=== PATIENT | female | born 1965 | race African-American/Black ===

== ENCOUNTER → 2017-04-13 | Outpatient (CLI) | payer BC ==
[~2017-04-13] MED LIST: DAYPRO600 M1 PO; LEVOCETIRIZINE D5 MG PO; METOPROLOL TAR25 MG PO; NEURONTIN100 MG PO; VOLTAREN75 MG PO
--- NOTE | ~2017-04-13 | MY29 ---
[facility] A Service of [facility] RADIOLOGY TEXT RESULTS PATIENT: CLIVE DALY LOCATION: [facility] : 63 UNIT #: [id number] AGE: [address]: Pedro Jaramillo MD SEX: F ORDER DR: [id number] [facility] [address] [place], [place] [address] [id number] O MR#: [id number] Acc #: [id number] NAME: CLIVE DALY. : 1965 SEX: F STUDY DATE/TIME: 04/13/2017 8:53 UNIT: [facility] ROOM: STUDY DESCRIPTION: MY MIRIAM SCREENING W/ CAD BILAT Attending Physician: Pedro Jaramillo M.D. Ordering Physician: Pedro Jaramillo M.D. Primary Care Physician: Guanako Munguia Jr., M.D. MEDICAL IMAGING REPORT This report is preliminary unless electronic signature is present EXAM Digital screening mammogram 04/13/2017. [facility] HISTORY 51-year-old woman no risk elevation. Annual screening. COMPARISON: Mammograms date to 03/18/2007 with most recent 04/09/2016. FINDINGS Digital imaging of each breast was completed utilizing screening protocol. Review includes FDA-approved CAD device. The breast parenchyma is heterogeneously dense. There are 3 circumscribed nodules again identified in the left breast with the larger nodule in the anterior third subareolar location. There is also a stable parenchymal focal opacity inner hemisphere of the right breast anterior third. There is no interval occurring breast mass. I see no suspicious mass characteristics and no suspicious microcalcifications. There is no architectural deformity. IMPRESSION Benign mammogram. Annual screening recommended. Patients over the age of 40 are entered into a reminder system with target due date for the next mammogram. A result letter will also be sent to the patient. BIRADS: 2 - benign findings Dictated by... Rashi Mensah M.D. [facility] A Service [facility] RADIOLOGY TEXT RESULTS PATIENT: CLIVE DALY LOCATION: [facility] : 63 UNIT #: [id number] AGE: [address]: Pedro Jaramillo MD SEX: F ORDER DR: THIS IS AN ELECTRONICALLY VERIFIED REPORT Rashi Mensah M.D. at 04/13/2017 2:39 PM Fabi TD: 04/13/2017 13:25 JOB #: [id number] MEDICAL IMAGING REPORT Page 1 of 1 COPY
== END | disposition home or self-care (01) ==
LOC: CWCC 01-27 08:45
DX: Z12.31 Encounter for screening mammogram for malignant neoplasm of breast (principal)
CPT/HCPCS: G0202